=== PATIENT | male | born 1980 | race American Indian/Alaskan Native ===

== ENCOUNTER 2018-12-12 04:15 | Emergency (ER) | payer OTHER ==
[2018-12-12 04:46] VITALS: BP 117/80
--- NOTE | 2018-12-12 04:47 | XRay Report ---
CHEST 2 VIEWS INDICATION / CLINICAL INFORMATION: Cough for one day. COMPARISON: None available. FINDINGS: SUPPORT DEVICES: None. HEART / MEDIASTINUM: The heart size and pulmonary vasculature are normal. LUNGS / PLEURA: No significant pulmonary or pleural abnormality. No pneumothorax. ADDITIONAL FINDINGS: No significant additional findings. IMPRESSION: No acute findings. Signer Name: Dell Smith MD Signed: 12/12/2018 4:43 AM Workstation Name: [id number]
--- NOTE | 2018-12-12 05:16 | Emergency Department Report ---
- General Chief Complaint: Upper Respiratory Infection Stated Complaint: COUGH,NASAL CONGESTION,COLIN Time Seen by Provider: 12/12/18 05:11 Source: patient Mode of arrival: Ambulatory Limitations: No Limitations - History of Present Illness Initial Comments: Patient is a 38-year-old -[place] male with history of bronchitis who presents for URI symptoms including sinus congestion cough productive of clear sinus pain and rhinorrhea yellow patient has not recorded MAXIMUM TEMPERATURE no fever noted in triage lise OJEDA Complaint: cough, sore throat, rhinorrhea, nasal congestion, sinus pain Onset/Timin -: days(s) Severity: moderate Severity scale (0 -10): 4 Quality: sharp Consistency: constant Improves With: nothing Worsens With: activity Associated Symptoms: rhinorrhea, nasal congestion, sore throat, cough, shortness of breath Treatments Prior to Arrival: none - Related Data Previous Rx's Medication Instructions Recorded Last Taken Type ALBUTEROL Inhaler (OR & NICU) 2 puff IH QID PRN #1 inhalation 12/12/18 Unknown Rx [ProAir HFA Inhaler] Amoxicillin/Potassium Clav 1 each PO BID 10 Days #20 tablet 12/12/18 Unknown Rx [Augmentin 875-125 Tablet] Benzocaine/Mentho [Cepacol X 1 each MM Q2H PRN #3 packet 12/12/18 Unknown Rx Strength] Ibuprofen [Motrin 800 MG tab] 800 mg PO Q8HR PRN #30 tablet 12/12/18 Unknown Rx diphenhydrAMINE [Benadryl CAP] 25 mg PO Q6HR PRN #30 capsule 12/12/18 Unknown Rx predniSONE [Deltasone] 40 mg PO DAILY 5 Days #10 tablet 12/12/18 Unknown Rx Allergies Allergy/AdvReac Type Severity Reaction Status Date / Time metoclopramide [From Reglan] Allergy Vomiting Verified 12/12/18 04:21 ED Review of Systems ROS: Stated complaint: COUGH,NASAL CONGESTION,COLIN Other details as noted in HPI Constitutional: denies: chills, fever Eyes: denies: eye pain, eye discharge, vision change ENT: throat pain, congestion Respiratory: cough, shortness of breath, wheezing Cardiovascular: denies: chest pain, palpitations Endocrine: no symptoms reported Gastrointestinal: denies: abdominal pain, nausea, vomiting, diarrhea Genitourinary: denies: urgency, dysuria Musculoskeletal: denies: back pain, joint swelling, arthralgia Skin: denies: rash, lesions Neurological: denies: headache, weakness, paresthesias, vertigo Psychiatric: denies: anxiety, depression Hematological/Lymphatic: denies: easy bleeding, easy bruising ED Past Medical Hx - Past Medical History Previous Medical History?: Yes Additional medical history: Lupus - Surgical History Past Surgical History?: Yes Hx Appendectomy: Yes Additional Surgical History: endoscopy - Social History Smoking Status: Never Smoker Substance Use Type: None - Medications Home Medications: Home Medications Medication Instructions Recorded Confirmed Last Taken Type ALBUTEROL Inhaler (OR & NICU) 2 puff IH QID PRN #1 inhalation 12/12/18 Unknown Rx [ProAir HFA Inhaler] Amoxicillin/Potassium Clav 1 each PO BID 10 Days #20 tablet 12/12/18 Unknown Rx [Augmentin 875-125 Tablet] Benzocaine/Mentho [Cepacol X 1 each MM Q2H PRN #3 packet 12/12/18 Unknown Rx Strength] Ibuprofen [Motrin 800 MG tab] 800 mg PO Q8HR PRN #30 tablet 12/12/18 Unknown Rx diphenhydrAMINE [Benadryl CAP] 25 mg PO Q6HR PRN #30 capsule 12/12/18 Unknown Rx predniSONE [Deltasone] 40 mg PO DAILY 5 Days #10 tablet 12/12/18 Unknown Rx ED Physical Exam - General Limitations: No Limitations General appearance: alert, in no apparent distress - Head Head exam: Present: normocephalic, normal inspection - Eye Eye exam: Present: normal appearance, PERRL, EOMI Pupils: Present: normal accommodation - ENT ENT exam: Present: mucous membranes moist, other (bilat maxillary sinus pain to palpation turbinate erythema , yellow clear rhinorrhea ). Absent: TM's normal bilaterally, normal external ear exam - Expanded ENT Exam Expanded Ear exam: Present: normal external inspection Mouth exam: Absent: trismus Throat exam: Positive: tonsillar erythema, tonsillomegaly, other (uvula midline no stridor no exudate no wheezing ). Negative: tonsillar exudate, R peritonsillar mass, L peritonsillar mass - Neck Neck exam: Present: normal inspection, full ROM. Absent: tenderness, meningis mus, lymphadenopathy, thyromegaly - Respiratory Respiratory exam: Present: normal lung sounds bilaterally. Absent: respiratory distress, wheezes, rales, rhonchi, stridor, chest wall tenderness - Cardiovascular Cardiovascular Exam: Present: regular rate, normal rhythm, normal heart sounds. Absent: systolic murmur, diastolic murmur, rubs, gallop - GI/Abdominal GI/Abdominal exam: Present: soft, normal bowel sounds. Absent: distended, tenderness, bruit, hernia - Rectal Rectal exam: Present: deferred - Extremities Exam Extremities exam: Present: normal inspection, full ROM, normal capillary refill. Absent: tenderness - Back Exam Back exam: Present: normal inspection, full ROM. Absent: tenderness, CVA tenderness (R), CVA tenderness (L), muscle spasm, rash noted - Neurological Exam Neurological exam: Present: alert, oriented X3, CN II-XII intact, normal gait - Psychiatric Psychiatric exam: Present: normal affect, normal mood - Skin Skin exam: Present: warm, dry, intact, normal color. Absent: rash ED Course Vital Signs 12/12/18 04:18 Temperature 98.4 F Pulse Rate 98 H Respiratory 20 Rate Blood Pressure 117/80 O2 Sat by Pulse 100 Oximetry ED Medical Decision Making - Medical Decision Making this is URI with sinusitis pt has completed amoxicillin 1 month ago, plain augmentin, prednisone, benadryl, albuterol, ibuprofen follow up with pcp , ent return to ed if symptoms worsen. Critical care attestation.: If time is entered above; I have spent that time in minutes in the direct care of this critically ill patient, excluding procedure time. ED Disposition Clinical Impression: URI (upper respiratory infection) Qualifiers: URI type: unspecified URI Qualified Code(s): J06.9 - Acute upper respiratory infection, unspecified Sinusitis Qualifiers: Sinusitis location: maxillary Chronicity: acute Recurrence: recurrent Qualified Code(s): J01.01 - Acute recurrent maxillary sinusitis Disposition: - TO HOME OR SELFCARE Is pt being admited?: No Does the pt Need Aspirin: No Condition: Stable Instructions: Sinusitis (ED), Upper Respiratory Infection (ED) Prescriptions: Amoxicillin/Potassium Clav [Augmentin 875-125 Tablet] 1 each PO BID 10 Days #20 tablet diphenhydrAMINE [Benadryl CAP] 25 mg PO Q6HR PRN #30 capsule PRN Reason: congestion Benzocaine/Mentho [Cepacol X Strength] 1 each MM Q2H PRN #3 packet PRN Reason: throat pain predniSONE [Deltasone] 40 mg PO DAILY 5 Days #10 tablet Ibuprofen [Motrin 800 MG tab] 800 mg PO Q8HR PRN #30 tablet PRN Reason: pain fever ALBUTEROL Inhaler (OR & NICU) [ProAir HFA Inhaler] 2 puff IH QID PRN #1 inhalation PRN Reason: Shortness Of Breath Referrals: PRIMARY CAREMD [Primary Care Provider] - 3-5 Days DEEPA FLOYD MD [Staff Physician] - 3-5 Days Forms: Work/School Release Form(ED)
== END 2018-12-12 05:32 | disposition home or self-care (01) ==
LOC: ED 04:15
DX: J01.01 Acute recurrent maxillary sinusitis (principal); J06.9 Acute upper respiratory infection, unspecified; Z90.49 Acquired absence of other specified parts of digestive tract; Z79.899 Other long term (current) drug therapy; Z88.8 Allergy status to other drugs, medicaments and biological substances
CPT/HCPCS: 71046; 99282; 99283